=== PATIENT | male | born 1990 | race African-American/Black ===

== ENCOUNTER 2019-11-26 | Emergency (ER) | payer SELFPAY ==
[2019-11-26] MEDS ORDERED: SYMBICORT 80-4.5MCG IN (15:49)
[2019-11-26 16:44] LABS: BARBITURATES NEGATIVE (NEGATIVE); COCAINE NEGATIVE (NEGATIVE); METHADONE NEGATIVE (NEGATIVE); OXCYCODONE NEGATIVE (NEGATIVE); TETRAHYDROCANNABIONOL NEGATIVE (NEGATIVE); TRICYLIC ANTIDEPRESSANTS NEGATIVE (NEGATIVE)
[2019-11-26] MEDS ORDERED: VOLTAREN - GENE75 MG PO (17:15)
== END 2019-11-26 17:23 | disposition home or self-care (01) | DRG 563 ==
PROVIDERS: Family Medicine
DX: S39.012A Strain of muscle, fascia and tendon of lower back, initial encounter (principal); F17.210 Nicotine dependence, cigarettes, uncomplicated; W11.XXXA Fall on and from ladder, initial encounter; Y93.89 Activity, other specified; Y92.89 Other specified places as the place of occurrence of the external cause; Y99.0 Civilian activity done for income or pay